=== PATIENT | female | born 1990 | race Caucasian/White ===

== ENCOUNTER 2018-03-03 00:07 | Emergency (ER) | payer MEDICAID ==
[~2018-03-03] VITALS: Ht 154.9 cm; Wt 68.0 kg
[~2018-03-03 00:07] MED LIST: ACET-2178; PREN-88 PO
[2018-03-03] MEDS ORDERED: ACYCLOVIR 400 MG TABLET PO ONE (00:30)
[2018-03-03 01:11] VITALS: BP 128/75
== END 2018-03-03 01:11 | disposition home or self-care (01) ==
LOC: ER 00:07
DX: F41.9 Anxiety disorder, unspecified (principal); B00.9 Herpesviral infection, unspecified; F17.200 Nicotine dependence, unspecified, uncomplicated; Z91.040 Latex allergy status
CPT/HCPCS: 99284; Z7610

== ENCOUNTER 2018-05-16 14:06 | Emergency (ER) | payer SELFPAY ==
[~2018-05-16] VITALS: Ht 152.4 cm; Wt 80.0 kg
[2018-05-17 00:12] VITALS: BP 118/70
== END 2018-05-17 00:13 | disposition home or self-care (01) ==
LOC: ER 14:06
DX: J06.9 Acute upper respiratory infection, unspecified (principal); F41.9 Anxiety disorder, unspecified; F17.200 Nicotine dependence, unspecified, uncomplicated; Z79.899 Other long term (current) drug therapy; Z91.040 Latex allergy status
CPT/HCPCS: 99283

== ENCOUNTER 2018-08-07 11:07 | Emergency (ER) | payer SELFPAY ==
[~2018-08-07] VITALS: Ht 162.6 cm; Wt 55.0 kg
[2018-08-07] MEDS ORDERED: IBUPROFEN 800MG TABLET PO ONE (12:45)
[2018-08-07 12:52] VITALS: BP 119/80
== END 2018-08-07 15:11 | disposition home or self-care (01) ==
LOC: ER 11:07
DX: M25.531 Pain in right wrist (principal); F41.9 Anxiety disorder, unspecified; M79.641 Pain in right hand; Z91.040 Latex allergy status; Z79.899 Other long term (current) drug therapy; Y08.89XA Assault by other specified means, initial encounter; Y93.89 Activity, other specified; Y92.89 Other specified places as the place of occurrence of the external cause; Y99.8 Other external cause status
CPT/HCPCS: 73110; 73130; 81025; 99283